=== PATIENT | female | born 1945 | race Caucasian/White ===

== ENCOUNTER 2020-07-03 10:11 | Observation (INO) ==
--- NOTE | 2020-06-07 11:43 | PAT Medication Instructions ---
Medication Instructions Date of Service June 07, 2020 Home Medications aspirin 81 mg PO QAM atorvastatin 10 mg PO HS calcium carbonate-vitamin D3 [Calcium 600 + D(3)] 2 cap PO QPM cholecalciferol (vitamin D3) [Vitamin D3] 25 mcg PO QAM coenzyme Q10 [Co Q-10] 100 mg PO QPM levothyroxine 88 mcg PO USEASDIRECTD lisinopril 30 mg PO QAM lysine [L-Lysine] 500 mg PO QAM multivitamin 1 cap PO DAILY phenazopyridine [Azo] 95 mg PO QAM STOP taking 2 weeks before surgery If surgery is within 2 weeks, stop taking as soon as possible. coenzyme Q10 [Co Q-10] 100 mg PO QPM lysine [L-Lysine] 500 mg PO QAM DO NOT take the morning of surgery cholecalciferol (vitamin D3) [Vitamin D3] 25 mcg PO QAM lisinopril 30 mg PO QAM multivitamin 1 cap PO DAILY phenazopyridine [Azo] 95 mg PO QAM Take morning of surgery With a small sip of water, OTHERWISE NOTHING TO EAT OR DRINK AFTER MIDNIGHT: aspirin 81 mg PO QAM levothyroxine 88 mcg PO USEASDIRECTD Take evening before surgery atorvastatin 10 mg PO HS calcium carbonate-vitamin D3 [Calcium 600 + D(3)] 2 cap PO QPM Other Notes If you have any questions please call us at [phone] or [phone] or [phone] or [phone]
--- NOTE | 2020-06-17 11:45 | Anesthesiology Consultation ---
Date of Service June 17, 2020 Assessment & Plan (1) Encounter for pre-operative examination: COVID Status: As of 06/17 assessment, patient denies travel to endemic area, known exposure/sick contacts, or symptoms of COVID19. Patient instructed that they and their household members must follow strict social distancing guidelines, wear a mask in public and avoid travel/events/gatherings for 14 days prior to surgery. Preoperative COVID19 testing to be completed prior to surgery per surgeon's arrangements. Patient made aware to self-isolate as much as possible between COVID testing and surgery. Patient will be getting her second vaccine the day after her Covid test (06/27/2020). Patient advised to be isolated after Covid test other than this. Patient also made aware of potential side effects from second dose and possibility of mild flu-like illness day after vaccine. Advised if any symptoms persist beyond 24 to 48 hours after Covid vaccine, to follow-up with surgeon and PCP. H/O PONV. Chart Review Chart Review: Acceptable Risk for Surgery (pending surgeon-ordered pcp clearance) and Patient seen in Pre Admission Testing Teaching & Discussion Instructed NPO after midnight before surgery, except medications with 15 cc of water. Medication instructions provided according to the PAT guidelines. History Surgery Operation Date: 07/03/20 08:35 Proposed Procedures p Left Total Knee Arthroplasty - Jair Demarco DO Height/Weight Height: 5 ft 8 in Weight: 79.9 kg Allergies Allergy/AdvReac Type Severity Reaction Status Date / Time No Known Allergies Allergy Verified 06/04/20 09:00 Medications Home Medications Medication Instructions Recorded Confirmed Last Taken aspirin 81 mg PO QAM 06/04/20 06/04/20 Unknown atorvastatin 10 mg PO HS 06/04/20 06/04/20 Unknown calcium carbonate-vitamin D3 2 cap PO QPM 06/04/20 06/04/20 Unknown [Calcium 600 + D(3)] cholecalciferol (vitamin D3) 25 mcg PO QAM 06/04/20 06/04/20 Unknown [Vitamin D3] coenzyme Q10 [Co Q-10] 100 mg PO QPM 06/04/20 06/04/20 Unknown levothyroxine 88 mcg PO USEASDIRECTD 06/04/20 06/04/20 Unknown lisinopril 30 mg PO QAM 06/04/20 06/04/20 Unknown lysine [L-Lysine] 500 mg PO QAM 06/04/20 06/04/20 Unknown multivitamin 1 cap PO DAILY 06/04/20 06/04/20 Unknown phenazopyridine [Azo] 95 mg PO QAM 06/04/20 06/04/20 Unknown Past Medical History Medical History (Updated 06/17/20 @ 15:47 by Ross Samuel) History of COVID-19 04/08/2020 - positive covid tested at [facility], loss of tast and smell. no current problems Hyperlipidemia Hypertension Hypothyroidism Osteoarthritis PONV (postoperative nausea and vomiting) Exercise / Class Metabolic Activity II 4-5 Yardwork/Stairs/Walk up hill Past Surgical History Surgical History History of arthroscopy of right knee Hx of cataract surgery right and left Hx of colonoscopy Hx of tonsillectomy Past Anesthesia History No Hx of Anesthesia Complications and No Family Hx of Anesthesia Complications History of PONV No Hx of Motion Sickness and History of PONV (nausea only with one procedure) Social History Smoking Status: Never smoker Do You Dip or Chew Tobacco: No Hx Alcohol Use: No Hx Substance Use: No substance use type: does not use Review of Systems Pt denies any recent chest pain, shortness of breath, palpitations, fever, URI, or uncontrolled acid reflux. +chronic cough for many years Physical Exam Vital Signs BP: 170/74 -- pt is anxious, takes BP at home and it's 115 systolic P: 62bpm SPO2: 98% RA T: 98.0 F R: 16 ENMT Mouth: + dental bridge (upper L side) and + dental restorations; no chipped teeth and no loose teeth Thyromental Distance: > or= 3.5 Finger Breadths Mallampati Class: II Neck neck extension not limited Respiratory normal respiratory effort, lungs clear to auscultation Cardiovascular RRR, no murmur, no edema Testing Laboratory Results 06/17/20 11:56 06/17/20 11:56 PT 10.7 Seconds (9.0-12.0) 06/17/20 11:56 INR 1.1 (0.9-1.1) 06/17/20 11:56 APTT 24.6 Seconds (21.0-31.0) 06/17/20 11:56 Hemoglobin A1c 5.9 % (4.5-5.6) H 06/17/20 11:56 Urine Color Yellow 06/17/20 11:56 Urine Appearance Clear (Clear) 06/17/20 11:56 Urine pH 5.0 (4.5-7.5) 06/17/20 11:56 Ur Specific [place] 1.016 (1.000-1.030) 06/17/20 11:56 Urine Protein Negative (Negative) 06/17/20 11:56 Urine Glucose (UA) Negative (Negative) 06/17/20 11:56 Urine Ketones Negative (Negative) 06/17/20 11:56 Urine Nitrite Negative (Negative) 06/17/20 11:56 Ur Leukocyte Esterase 1+ (Negative) H 06/17/20 11:56 Urine WBC (Auto) 10-30 /hpf (0-5) H 06/17/20 11:56 Urine RBC (Auto) 0-4 /hpf (0-4) 06/17/20 11:56 U Hyaline Cast (Auto) 0 /lpf (0-5) 06/17/20 11:56 U Epithel Cells (Auto) 5-10 /lpf (0-5) H 06/17/20 11:56 Urine Bacteria (Auto) Negative (Negative) 06/17/20 11:56 Blood Type O Positive 06/17/20 11:56 Antibody Screen NEGATIVE 06/17/20 11:56 Electrocardiogram Date: 06/17/20 Findings: + NSR @ (63bpm) Chest X-Ray Date: 06/17/20 Findings: + NAD
--- NOTE | 2020-06-17 12:41 | XRay Report ---
XR chest Pre-admission PA/Lat CLINICAL HISTORY: Preoperative evaluation. COMPARISON STUDY: No previous studies for comparison. FINDINGS: Lung volumes are normal. Lungs are clear. There is no pneumothorax or pleural effusion. Car diac size is normal. Mediastinal contours are normal. There is no evidence for pulmonary edema. IMPRESSION: No acute cardiopulmonary findings. ACT 112: Negative or not required by law. Electronically signed by: Cuong Allison M.D. 06/17/2020 12:40 PM
[2020-06-17 13:22] LABS: Basophils # (auto) 0.02 K/uL (0-0.2); Basophils % (auto) 0.3 %; Eosinophils # (auto) 0.19 K/uL (0-0.5); Eosinophils % (auto) 2.8 %; Hematocrit (blood only) 40.8 % (37-47); Hemoglobin 13.7 g/dL (12.0-16.0); Immature Granulocytes # (auto) 0.02 K/uL (0.00-0.02); Immature Granulocytes % (auto) 0.3 %; Lymphocytes # (auto) 2.44 K/uL (1.2-3.4); Lymphocytes % (auto) 36.3 %; Mean Corpuscular Hemoglobin 30.3 pg (25-34); Mean Corpuscular Hgb Conc 33.6 g/dL (32-36); Mean Corpuscular Volume 90.3 fL (80-100); Mean Platelet Volume 11.3 fL (7.4-10.4); Monocytes # (auto) 0.45 K/uL (0.11-0.59); Monocytes % (auto) 6.7 %; Neutrophils # (auto) 3.61 K/uL (1.4-6.5); Neutrophils % (auto) 53.6 %; Platelet Count 165 K/uL (130-400); RDW Coefficient of Variation 13.5 % (11.5-14.5); RDW Standard Deviation 44.3 fL (36.4-46.3); Red Blood Count 4.52 M/uL (4.2-5.4); White Blood Count 6.73 K/uL (4.8-10.8)
[2020-06-17 13:28] LABS: Appearance Urine Clear (Clear); Bacteria Urine Automated Negative (Negative); Bilirubin Urine Negative (Negative); Blood Urine Negative (Negative); Cast Urine Automated 0 /lpf (0-5); Color Urine Yellow; Glucose Urine UA Negative (Negative); Ketones Urine Negative (Negative); Leukocyte Esterase Urine 1+ (Negative); Nitrite Urine Negative (Negative); Protein Urine Negative (Negative); RBC Urine Automated 0-4 /hpf (0-4); Specific Gravity Urine 1.016 (1.000-1.030); Urobilinogen Urine Negative (Negative)
[2020-06-17 13:29] LABS: BUN Creatinine Ratio 17.8 (10-20); Calcium 10.6 mg/dl (8.5-10.1); Creatinine Clr Calc Pharmacy 64.4 ml/min; Est GFR (African American) 78.2; Est GFR (Non-African American) 67.5; Potassium 4.3 mmol/L (3.5-5.1)
[2020-06-17 13:31] LABS: Estimated Average Glucose 123 mg/dl; Hemoglobin A1C 5.9 % (4.5-5.6)
[2020-06-17 13:39] LABS: INR 1.1 (0.9-1.1); Partial Thromboplastin Ratio 0.9; Partial Thromboplastin Time 24.6 Seconds (21.0-31.0); Prothrombin Time 10.7 Seconds (9.0-12.0)
--- NOTE | 2020-06-17 14:26 | Electrocardiogram Report ---
Test Reason : Blood Pressure : / mmHG Vent. Rate : 063 BPM Atrial Rate : 063 BPM P-R Int : 144 ms QRS Dur : 088 ms QT Int : 424 ms P-R-T Axes : 054 -18 052 degrees QTc Int : 433 ms Normal sinus rhythm Normal ECG No previous ECGs available Confirmed by Rolan Smith ([id number]) on 06/17/2020 2:25:54 PM Referred By: Jair Demarco Confirmed By:Rolan Smith
--- NOTE | 2020-06-28 08:55 | History & Physical Report ---
Date of Service June 28, 2020 date of surgery: 07/03/20 Procedure: Left Total Knee Arthroplasty Assessment & Plan (1) Arthritis of knee, left: she presents with continued pain in her left knee, it is now buckling and giving out, she has had prior visco injections without much relief. we discussed her options and she would like to proceed with left total knee arthroplasty at [facility]. will use hinged knee brace to replace the other knee brace that she has been using. will proceed with left TKA. The risks and benefits have been discussed including, but not limited to, risk of infection, nerve injury, stiffness, loss of motion, failure to improve, etc. Reasonable outcomes and options of treatment were discussed. An explanation of appropriate alternatives to the procedure that may be advantageous were discussed and their risks and benefits, as well as the risks and benefits of not proceeding with treatment. I offered to answer any additional inquiries concerning the treatment involved. All the patient's questions were answered. The patient is agreeable, understanding of the treatment plan and alternatives, and wishes to proceed with the treatment plan. History of Present Illness Chief Complaint: left knee pain Primary Care Provider: Kim Solo DO Federico is a 75 year old female who complains of left knee pain, presents for pre- op evaluation prior to a left total knee replacement by dr Demarco at [facility]. she complains of pain, crepitus, decreased range of motion and stiffness in her left knee. she states that the symptoms have been chronic and non-traumatic. Currently the patient states that the symptoms are moderate-severe. The pain is described as aching, sharp and throbbing. The symptoms are aggravated by ascending stairs, daily activities, first steps while awake walking. Prior NSAIDs include IBU and Aleve. she has been treated with previous visco injections in the past without much relief. she is also using a hinged knee brace for support. Allergies Allergy/AdvReac Type Severity Reaction Status Date / Time No Known Allergies Allergy Verified 06/04/20 09:00 Home Medications Medication Instructions Recorded Confirmed Type aspirin 81 mg PO QAM 06/04/20 06/04/20 History atorvastatin 10 mg PO HS 06/04/20 06/04/20 History calcium carbonate-vitamin D3 2 cap PO QPM 06/04/20 06/04/20 History [Calcium 600 + D(3)] cholecalciferol (vitamin D3) 25 mcg PO QAM 06/04/20 06/04/20 History [Vitamin D3] coenzyme Q10 [Co Q-10] 100 mg PO QPM 06/04/20 06/04/20 History levothyroxine 88 mcg PO USEASDIRECTD 06/04/20 06/04/20 History lisinopril 30 mg PO QAM 06/04/20 06/04/20 History lysine [L-Lysine] 500 mg PO QAM 06/04/20 06/04/20 History multivitamin 1 cap PO DAILY 06/04/20 06/04/20 History phenazopyridine [Azo] 95 mg PO QAM 06/04/20 06/04/20 History Past Med/Surg History Medical History History of COVID-19 04/08/2020 - positive covid tested at [facility], loss of tast and smell. no current problems Hyperlipidemia Hypertension Hypothyroidism Osteoarthritis PONV (postoperative nausea and vomiting) Surgical History History of arthroscopy of right knee Hx of cataract surgery right and left Hx of colonoscopy Hx of tonsillectomy Social History Smoking Status: Never smoker Second Hand Exposure: No; Do You Dip or Chew Tobacco: No; Tobacco Cessation Education Requested by Patient: No Hx Alcohol Use: No Hx Substance Use: No Preferred Language: Italian Communication Ability: Effective Maintenance And Utilities Supervisor Required: No Beliefs That Will Affect Care: None Current Living Situation: Spouse Other Information That Helps Us Care for You: No Feels Safe at Home: Yes Safety Concerns: Feels Safe At This Time Assistive Devices: Brace/Splint/Immobilizer and Glasses Review of Systems Review of Systems: All systems reviewed & are unremarkable except as noted in HPI & below Constitutional: no fever, no chills and no sweats Respiratory: no cough and no dyspnea Cardiovascular: no chest pain, no dyspnea and no orthopnea Gastrointestinal: no abdominal pain, no nausea and no vomiting Musculoskeletal: as per Subjective / HPI Physical Exam Physical Exam: HT: 5ft 8in WT: 79.9kg BP: 128/84 Constitutional: WD/WN, vitals as above no acute distress Respiratory: normal respiratory effort, lungs clear to auscultation no respiratory distress, no labored breathing and does not use accessory muscles Cardiovascular: RRR, no murmur, no edema Gastrointestinal (Abdomen): normal bowel sounds, soft, nontender, no hepatosplenomegaly Musculoskeletal: Knee: + knee abnormal to inspection (left knee- ), + effusion (+1 effusion), + limited ROM of knee (ROM 0/3/110), + knee ROM with crepitation, + joint line tenderness (medial joint line) and + Ricci's sign positive; no deformity, no skin erythema, no ecchymosis, no valgus laxity, no varus laxity, anterior drawer test negative, Lorenza's sign negative and pivot shift test negative Results & Data Results & Data ([facility]) Laboratory Results Laboratory Results WBC 6.73 K/uL (4.8-10.8) 06/17/20 11:56 RBC 4.52 M/uL (4.2-5.4) 06/17/20 11:56 Hgb 13.7 g/dL (12.0-16.0) 06/17/20 11:56 Hct 40.8 % (37-47) 06/17/20 11:56 MCV 90.3 fL (80-100) 06/17/20 11:56 MCH 30.3 pg (25-34) 06/17/20 11:56 MCHC 33.6 g/dL (32-36) 06/17/20 11:56 RDW Std Deviation 44.3 fL (36.4-46.3) 06/17/20 11:56 RDW Coeff of Shailesh 13.5 % (11.5-14.5) 06/17/20 11:56 Plt Count 165 K/uL (130-400) 06/17/20 11:56 MPV 11.3 fL (7.4-10.4) H 06/17/20 11:56 Immature Gran % (Auto) 0.3 % 06/17/20 11:56 Neut % (Auto) 53.6 % 06/17/20 11:56 Lymph % (Auto) 36.3 % 06/17/20 11:56 [place] % (Auto) 6.7 % 06/17/20 11:56 Eos % (Auto) 2.8 % 06/17/20 11:56 Baso % (Auto) 0.3 % 06/17/20 11:56 Neut # (Auto) 3.61 K/uL (1.4-6.5) 06/17/20 11:56 Lymph # (Auto) 2.44 K/uL (1.2-3.4) 06/17/20 11:56 [place] # (Auto) 0.45 K/uL (0.11-0.59) 06/17/20 11:56 Eos # (Auto) 0.19 K/uL (0-0.5) 06/17/20 11:56 Baso # (Auto) 0.02 K/uL (0-0.2) 06/17/20 11:56 Immature Gran # (Auto) 0.02 K/uL (0.00-0.02) 06/17/20 11:56 PT 10.7 Seconds (9.0-12.0) 06/17/20 11:56 INR 1.1 (0.9-1.1) 06/17/20 11:56 APTT 24.6 Seconds (21.0-31.0) 06/17/20 11:56 PTT Ratio 0.9 06/17/20 11:56 Sodium 145 mmol/L (136-145) 06/17/20 11:56 Potassium 4.3 mmol/L (3.5-5.1) 06/17/20 11:56 Chloride 108 mmol/L (98-107) H 06/17/20 11:56 Carbon Dioxide 27 mmol/L (21-32) 06/17/20 11:56 Anion Gap 10.0 (3-11) 06/17/20 11:56 BUN 15 mg/dl (7-18) 06/17/20 11:56 Creatinine 0.85 mg/dl (0.6-1.2) 06/17/20 11:56 Est Cr Clr Drug Dosing 64.4 ml/min 06/17/20 11:56 Est GFR ( Amer) 78.2 06/17/20 11:56 Est GFR (Non-Af Amer) 67.5 06/17/20 11:56 BUN/Creatinine Ratio 17.8 (10-20) 06/17/20 11:56 Glucose 87 mg/dl (70-99) 06/17/20 11:56 Estimat Average Glucose 123 mg/dl 06/17/20 11:56 Hemoglobin A1c 5.9 % (4.5-5.6) H 06/17/20 11:56 Calcium 10.6 mg/dl (8.5-10.1) H 06/17/20 11:56 Albumin 4.0 gm/dl (3.4-5.0) 06/17/20 11:56 Urine Color Yellow 06/17/20 11:56 Urine Appearance Clear (Clear) 06/17/20 11:56 Urine pH 5.0 (4.5-7.5) 06/17/20 11:56 Ur Specific [place] 1.016 (1.000-1.030) 06/17/20 11:56 Urine Protein Negative (Negative) 06/17/20 11:56 Urine Glucose (UA) Negative (Negative) 06/17/20 11:56 Urine Ketones Negative (Negative) 06/17/20 11:56 Urine Blood Negative (Negative) 06/17/20 11:56 Urine Nitrite Negative (Negative) 06/17/20 11:56 Urine Bilirubin Negative (Negative) 06/17/20 11:56 Urine Urobilinogen Negative (Negative) 06/17/20 11:56 Ur Leukocyte Esterase 1+ (Negative) H 06/17/20 11:56 Urine WBC (Auto) 10-30 /hpf (0-5) H 06/17/20 11:56 Urine RBC (Auto) 0-4 /hpf (0-4) 06/17/20 11:56 U Hyaline Cast (Auto) 0 /lpf (0-5) 06/17/20 11:56 U Epithel Cells (Auto) 5-10 /lpf (0-5) H 06/17/20 11:56 Urine Bacteria (Auto) Negative (Negative) 06/17/20 11:56 Blood Type O Positive 06/17/20 11:56 Antibody Screen NEGATIVE 06/17/20 11:56 Diagnostic Findings Left Knee X-ray: left knee series confirm advanced degenerative changes to the left knee, greatest medial compartments and patellofemoral joint, showing joint space narrowing, osteophyte formation and subchondral sclerosis. no acute bony pathology noted.
[~2020-07-03 10:11] MED LIST: ACETAMINOPHEN 500 MG TAB PO SCH; BUPIVACAINE 0.25% 30 ML VIAL ONE; BUPIVACAINE 0.5 % 5 MG/1 ML PF 10ML VIAL ONE; CeleBREX 200 MG CAP PO SCH; EPINEPHrine INJ 1 MG/ML AMP ONE; FAMOTIDINE 20 MG TAB PO SCH; GABAPENTIN 300 MG CAP PO SCH; LR 500ML BOLUS, THEN 15ML/HR IV SCH; METOCLOPRAMIDE HCL 10 MG TABLET PO SCH; ROPIVACAINE 0.5% HCL/PF 150 MG, BUPIVACAINE 0.75% MPF 20 ML, EPINEPHrine 30MG/30ML (OR ... INSTIL SCH; Scopolamine 1 MG TDSY TD SCH; ceFAZolin 1000MG 1,000 MG/7.5 ML SYR IV SCH; dexAMETHasone 4 MG TAB PO SCH
[2020-07-03] MEDS ORDERED: MIDAZOLAM HCL 1 MG/ML 2ML VIAL ONE ×3 (11:20→13:57)
--- NOTE | 2020-07-03 11:42 | History & Physical Bridge Note ---
Date of Service July 03, 2020 History & Physical Bridge Note I have examined the patient, reviewed the History & Physical and in the interval since the performance of the History & Physical I have noted the following changes of clinical significance: no changes noted
[2020-07-03] MEDS ORDERED: TRANEXAMIC ACID / 0.7% NACL 1000MG/100ML BAG IV ONE (11:46)
[2020-07-03] MEDS ORDERED: TRANEXAMIC ACID 1,000 MG **IV Pre-op IV SCH (12:00)
[2020-07-03] MEDS ORDERED: TRANEXAMIC ACID / 0.7% NACL 1,000 MG/100 ML BAG IV SCH (12:00)
[2020-07-03] MEDS ORDERED: BACITRACIN INJ 50,000 UNIT VIAL ONE (12:23)
[2020-07-03] MEDS ORDERED: ORTHO JOINT ANESTHETIC ONE (12:23)
[2020-07-03] MEDS ORDERED: HYDROmorphone INJ 2 MG/ML SYR/VIAL IV PRN (12:30)
[2020-07-03] MEDS ORDERED: ePHEDrine sulfate 50 MG/ML AMP IV PRN (12:30)
[2020-07-03] MEDS ORDERED: ONDANSETRON INJ 2 MG/ML 2 ML VIAL IV PRN ×2 (12:30→16:59)
[2020-07-03] MEDS ORDERED: ATROPINE SULFATE 0.1 MG/ML 10ML SYR IV PRN (12:30)
[2020-07-03] MEDS ORDERED: fentaNYL citrate 100 MCG/2 ML VIAL IV PRN (12:30)
[2020-07-03] MEDS ORDERED: LIDOCAINE HCL 2% 2 ML VIAL/AMP(20MG/ML) INFIL ONE (13:43)
[2020-07-03] MEDS ORDERED: PROPOFOL IV EMULSION 10 MG/ML 20 ML VIAL IV ONE (13:43)
--- NOTE | 2020-07-03 14:14 | Operative Report ---
Post Operative Report Pre & Post Diagnosis Operation Date: 07/03/20 12:55 Pre-Op Diagnosis: Left Knee Primary Osteoarthritis Post-Op Diagnosis: Left Knee Primary Osteoarthritis I identified the patient and participated in the time-out.: Yes Procedure Operation Date: 07/03/20 12:55 Actual Procedures p Left Total Knee Arthroplasty(Left) utilizing [employer] persona medial constrained size 7 femur E tibia 10 polythirty 1 oval patella- Jair Demarco DO Surgeon Jair Demarco DO Spot Checker Uriel ERNANDEZ Estimated Blood Loss 5 Findings Consistent with Post-Op Diagnosis Patient presents with severe end-stage DJD left knee no response to conservative management varus alignment subchondral sclerosis marginal osteophytes subchondral cystic changes eburnated [id number] with a moderate to large e ffusion Specimens Bone and cartilage Drains Medium bore Hemovac Anesthesia Type MAC Spinal Regional Complications none Disposition Accompanied Patient To Recovery: No Disposition: Recovery Room Indications Patient presents with severe end-stage DJD left knee no response to conservative management clinic physical therapy anti-inflammatories relative rest activity modification corticosteroid injection Visco supplementation the above intraoperative findings are noted at time of surgery Description of Procedure After proper prepping and draping of the left lower extremity anterior midline incision was made over the region of the extensor extensor mechanism after meticulous hemostasis was obtained and maintained in subcutaneous tissues a medial parapatellar incision was made The patella was subluxed lateralward the medial lateral gutter were cleaned from any hypertrophic synovitis and scar tissue of the distal femoral block was placed and the distal femoral osteotomy cut was made subsequently the chamfers anterior and posterior osteotomy cuts were made utilizing the 4-in-1 block the tibia was subsequently subluxed anteriorward medial and ateral meniscal remnants were excised in their entirety remnants of the anterior and posterior cruciate ligaments were excised in their entirety excellent exposure of the proximal tibia was obtained the tibial osteotomy guide was placed on the proximal tibial osteotomy cut was made once again the knee was irrigated with copious amounts of sterile saline solution the patella was subsequently everted lateralward thickened scar tissue around the patella was removed the patella was subsequently cut utilizing a freehand technique and was drilled prepared for final preparation and placement of patella socially flexion-extension gaps were checked and the equal and symmetric trials were placed to the appropriate femoral and tibial trials with poly-spacer being placed for equal flexion and extension gaps and full range of motion including extension to 0 and flexion to 140 the trial components after having been taken to recovery range of motion was subsequently removed meticulous hemostasis was obtained and maintained subsequently a knee block injection of joint cocktail including ropivacaine 0.5% 150 mg. Bupivacaine 0.5% epinephrine 1-200,030 mL's toradol 30 mg dexamethasone 4 mg ketamine 10 mg clonidine 100 micrograms normal saline solution 30 mg was infiltrated into the soft tissues of the posterior knee medial lateral gutters and periosteal synovium special attention was paid to protect neurovascular structures at all times subsequently trial components having been removed the knee was irrigated with sterile saline solution. debris was removed the proximal tibia was subsequently prepared and was made ready for the placement of the tibial component tibial component was also cemented and tamped into position the femoral component was subsequently placed and cemented in the position the patellar component was subsequently cemented in position because hemostasis once again obtained and maintained wound having been thoroughly irrigated with debridement and debridement lavage was performed as well as a medial parapatellar incision closed with #1 Vicryl in interrupted fashion subcutaneous was closed with #2 Vicryl skin was closed with skin clips. PA-C was necessary for prepping and drapping as well as wound closure of deep fascia Sub cutaneous tissue and skin and was necessary for the case. A sterile compressive dressing was placed patient was taken to recovery in stable condition of report dictated by Dav I attest to the content of the Intraoperative Record and any orders documented therein. Any exceptions are noted below. I attest to the content of the Intraoperative Record and any orders documented therein. Any exceptions are noted below.
--- NOTE | 2020-07-03 15:41 | XRay Report ---
XR knee LT 1 or 2V routine CLINICAL HISTORY: Postoperative evaluation. COMPARISON: None FINDINGS: Alignment of the total left knee arthroplasty is anatomic. There is no periprosthetic frac ture or unexpected radiopaque foreign body. There are skin margaret. IMPRESSION: Expected findings following total left knee arthroplasty. ACT 112: Negative or not required by law. Electronically signed by: Cuong Allison M.D. 07/03/2020 3:40 PM
--- NOTE | 2020-07-03 15:48 | Anesthesiology Progress Note ---
Date of Service July 03, 2020 Anesthesia Post Procedure Vital Signs Vital Signs: Temp Pulse Pulse Resp BP BP Pulse Ox 07/03/20 15:30 60 16 130/61 95 07/03/20 15:20 61 16 132/67 100 07/03/20 15:10 63 14 126/65 99 07/03/20 15:00 69 14 123/72 100 07/03/20 14:52 36.5 C 78 19 137/68 100 07/03/20 10:58 36.9 C 73 20 174/85 H 100 Transfer of Care Handoff Completed per policy Notes Mental Status: alert / awake / arousable and participated in evaluation Patient Amnestic to Procedure: Yes Nausea / Vomiting: adequately controlled Pain: adequately controlled Airway Patency, RR, SpO2: stable & adequate BP & HR: stable & adequate Hydration State: stable & adequate Neuraxial Anesthesia: was administered and sensory block is resolving Anesthetic Complications: no major complications apparent and Pt Satisfied with anesthetic care
[2020-07-03] MEDS ORDERED: Scopolamine CHECK PATCH PLACEMENT SCH (16:00)
[2020-07-03] MEDS ORDERED: NALOXONE HCL 0.4 MG/1 ML VIAL/CARP IV PRN (16:59)
[2020-07-03] MEDS ORDERED: METOCLOPRAMIDE HCL INJ 5 MG/ML 2 ML VIAL IV PRN (16:59)
[2020-07-03] MEDS ORDERED: oxyCODONE HCL IR 5 MG TAB (IMMEDIATE RELEASE) PO PRN (16:59)
[2020-07-03] MEDS ORDERED: diphenhydrAMINE Capsule 25 MG CAP PO PRN (16:59)
[2020-07-03] MEDS ORDERED: bisacodyL 10 MG SUPP PR PRN (16:59)
[2020-07-03] MEDS ORDERED: MAGNESIUM HYDROXIDE SUSP 30 ML UDC PO PRN (16:59)
[2020-07-03] MEDS ORDERED: HYDROmorphone INJ 1 MG/ML SYRINGE IV PRN (16:59)
[2020-07-03] MEDS: SODIUM CHLORIDE 0.9% 1000ML 1,000 ML IV SCH (17:46)
[2020-07-03] MEDS: KETOROLAC TROMETHAMINE 15 MG/ML VIAL IV SCH ×2 (17:48→23:12)
[2020-07-03] MEDS ORDERED: ATORVASTATIN 10 MG TAB PO SCH (21:00)
[2020-07-03] MEDS ORDERED: SENNA 8.6 MG TAB PO SCH (21:00)
[2020-07-03] MEDS ORDERED: CALCIUM 600MG + VIT D 400 IU TAB PO SCH (21:00)
[2020-07-03] MEDS: DOCUSATE SODIUM 100 MG CAP PO SCH (21:38)
[2020-07-03] MEDS: ASPIRIN 81 MG ECTAB PO SCH (21:38)
[2020-07-03] MEDS: ACETAMINOPHEN 500 MG TAB PO SCH (21:38)
[2020-07-03] MEDS: ceFAZolin 1000MG 1,000 MG/7.5 ML SYR IV SCH (21:38)
[2020-07-04] MEDS: ACETAMINOPHEN 500 MG TAB PO SCH (05:01)
[2020-07-04] MEDS: SODIUM CHLORIDE 0.9% 1000ML 1,000 ML IV SCH (05:02)
[2020-07-04] MEDS: KETOROLAC TROMETHAMINE 15 MG/ML VIAL IV SCH ×2 (05:02→11:52)
[2020-07-04] MEDS: ceFAZolin 1000MG 1,000 MG/7.5 ML SYR IV SCH (05:02)
[2020-07-04 06:10] LABS: Hematocrit (blood only) 31.6 % (37-47); Hemoglobin 10.7 g/dL (12.0-16.0); Mean Corpuscular Hgb Conc 33.9 g/dL (32-36); Mean Corpuscular Volume 88.5 fL (80-100); Mean Platelet Volume 11.2 fL (7.4-10.4); Platelet Count 156 K/uL (130-400); RDW Coefficient of Variation 13.2 % (11.5-14.5); RDW Standard Deviation 42.7 fL (36.4-46.3); Red Blood Count 3.57 M/uL (4.2-5.4); White Blood Count 11.62 K/uL (4.8-10.8)
[2020-07-04] MEDS ORDERED: LEVOTHYROXINE SODIUM 88 MCG TABLET PO SCH (06:30)
[2020-07-04 06:34] LABS: BUN Creatinine Ratio 21.1 (10-20); Calcium 9.4 mg/dl (8.5-10.1); Creatinine Clr Calc Pharmacy 58.6 ml/min; Est GFR (African American) 70.2; Est GFR (Non-African American) 60.5; Potassium 4.1 mmol/L (3.5-5.1)
--- NOTE | 2020-07-04 06:57 | Orthopedic Progress Note ---
Date of Service July 04, 2020 Assessment & Plan (1) History of total left knee replacement: POD #1 s/p left TKA pt/ot dvt proph with DOLLY/SCD/ASA plan for d/c home with HHPT, will recheck after PT today. Admission and Anticipated Discharge Date Admission Date: July 03, 2020 Subjective POD #1 s/p Left TKA Review of Systems Constitutional: no fever, no chills and no sweats Respiratory: no cough and no dyspnea Cardiovascular: no chest pain and no dyspnea Gastrointestinal: no abdominal pain, no nausea and no vomiting Physical Exam Physical Exam: Vital Signs Temp 36.7 C 07/04/20 03:21 Pulse 60 07/04/20 03:21 Resp 16 07/04/20 03:21 BP 114/65 07/04/20 03:21 Pulse Ox 95 07/04/20 03:21 Intake & Output 07/03/20 07/03/20 07/04/20 06:59 18:59 06:59 Intake Total 1600 / 3200 1600 / 3200 Output Total 15 / 1065 1050 / 1065 Balance 1585 / 2135 550 / 2135 Weight 78.925 kg Intake: IV 600 / 1700 1100 / 1700 Lr 1,000 ml @ 15 mls/hr IV . 500 / 500 Q24H BRENNAN Rx#:[id number] Nss 1000ML 1,0 00 ml @ 100 mls/ 1000 / 1000 hr IV .Q10H SC H Rx#:[id number] TRANEXAMIC ACI D / 0.7% NACL 1, 100 / 200 100 / 200 000 mg In 100 ml @ 600 mls/hr IV 1200 BRENNAN Rx #:[id number] IV Perioperative 1000 / 1000 Oral 500 / 500 Output: Urine 650 / 650 Estimated Blood Loss 5 / 5 Drain Output 10 / 410 400 / 410 Left Knee Hemo vac 10 / 410 400 / 410 Other: # Unmeasured Voi ds 1 Weight Measureme nt Method Standing Scale Constitutional: WD/WN, vitals as above Musculoskeletal: Left Leg: NVDI, calf SNT, negative bouchra sign. DP palpable, able to wiggle toes/ankle movement without difficulty. dressing clean dry and intact. Results & Data ([facility]) Vital Signs (Past 12 Hours) Vital Signs Temp Pulse Pulse Resp BP Pulse Ox 07/04/20 03:21 36.7 C 60 16 114/65 95 07/03/20 22:48 36.6 C 60 16 104/64 95 07/03/20 19:29 36.6 C 66 16 131/71 95 Laboratory Results Laboratory Results WBC 11.62 K/uL (4.8-10.8) H 07/04/20 05:34 RBC 3.57 M/uL (4.2-5.4) L 07/04/20 05:34 Hgb 10.7 g/dL (12.0-16.0) L 07/04/20 05:34 Hct 31.6 % (37-47) L 07/04/20 05:34 MCV 88.5 fL (80-100) 07/04/20 05:34 MCH 30.0 pg (25-34) 07/04/20 05:34 MCHC 33.9 g/dL (32-36) 07/04/20 05:34 RDW Std Deviation 42.7 fL (36.4-46.3) 07/04/20 05:34 RDW Coeff of Shailesh 13.2 % (11.5-14.5) 07/04/20 05:34 Plt Count 156 K/uL (130-400) 07/04/20 05:34 MPV 11.2 fL (7.4-10.4) H 07/04/20 05:34 Immature Gran % (Auto) 0.3 % 06/17/20 11:56 Neut % (Auto) 53.6 % 06/17/20 11:56 Lymph % (Auto) 36.3 % 06/17/20 11:56 [place] % (Auto) 6.7 % 06/17/20 11:56 Eos % (Auto) 2.8 % 06/17/20 11:56 Baso % (Auto) 0.3 % 06/17/20 11:56 Neut # (Auto) 3.61 K/uL (1.4-6.5) 06/17/20 11:56 Lymph # (Auto) 2.44 K/uL (1.2-3.4) 06/17/20 11:56 [place] # (Auto) 0.45 K/uL (0.11-0.59) 06/17/20 11:56 Eos # (Auto) 0.19 K/uL (0-0.5) 06/17/20 11:56 Baso # (Auto) 0.02 K/uL (0-0.2) 06/17/20 11:56 Immature Gran # (Auto) 0.02 K/uL (0.00-0.02) 06/17/20 11:56 PT 10.7 Seconds (9.0-12.0) 06/17/20 11:56 INR 1.1 (0.9-1.1) 06/17/20 11:56 APTT 24.6 Seconds (21.0-31.0) 06/17/20 11:56 PTT Ratio 0.9 06/17/20 11:56 Sodium 142 mmol/L (136-145) 07/04/20 05:34 Potassium 4.1 mmol/L (3.5-5.1) 07/04/20 05:34 Chloride 111 mmol/L (98-107) H 07/04/20 05:34 Carbon Dioxide 26 mmol/L (21-32) 07/04/20 05:34 Anion Gap 5.0 (3-11) 07/04/20 05:34 BUN 20 mg/dl (7-18) H 07/04/20 05:34 Creatinine 0.93 mg/dl (0.6-1.2) 07/04/20 05:34 Est Cr Clr Drug Dosing 58.6 ml/min 07/04/20 05:34 Est GFR ( Amer) 70.2 07/04/20 05:34 Est GFR (Non-Af Amer) 60.5 07/04/20 05:34 BUN/Creatinine Ratio 21.1 (10-20) H 07/04/20 05:34 Glucose 128 mg/dl (70-99) H 07/04/20 05:34 Estimat Average Glucose 123 mg/dl 06/17/20 11:56 Hemoglobin A1c 5.9 % (4.5-5.6) H 06/17/20 11:56 Calcium 9.4 mg/dl (8.5-10.1) 07/04/20 05:34 Albumin 4.0 gm/dl (3.4-5.0) 06/17/20 11:56 Urine Color Yellow 06/17/20 11:56 Urine Appearance Clear (Clear) 06/17/20 11:56 Urine pH 5.0 (4.5-7.5) 06/17/20 11:56 Ur Specific [place] 1.016 (1.000-1.030) 06/17/20 11:56 Urine Protein Negative (Negative) 06/17/20 11:56 Urine Glucose (UA) Negative (Negative) 06/17/20 11:56 Urine Ketones Negative (Negative) 06/17/20 11:56 Urine Blood Negative (Negative) 06/17/20 11:56 Urine Nitrite Negative (Negative) 06/17/20 11:56 Urine Bilirubin Negative (Negative) 06/17/20 11:56 Urine Urobilinogen Negative (Negative) 06/17/20 11:56 Ur Leukocyte Esterase 1+ (Negative) H 06/17/20 11:56 Urine WBC (Auto) 10-30 /hpf (0-5) H 06/17/20 11:56 Urine RBC (Auto) 0-4 /hpf (0-4) 06/17/20 11:56 U Hyaline Cast (Auto) 0 /lpf (0-5) 06/17/20 11:56 U Epithel Cells (Auto) 5-10 /lpf (0-5) H 06/17/20 11:56 Urine Bacteria (Auto) Negative (Negative) 06/17/20 11:56 Blood Type O Positive 06/17/20 11:56 Antibody Screen NEGATIVE 06/17/20 11:56 Diagnostic Findings XR knee LT 1 or 2V routine CLINICAL HISTORY: Postoperative evaluation. COMPARISON: None FINDINGS: Alignment of the total left knee arthroplasty is anatomic. There is no periprosthetic fracture or unexpected radiopaque foreign body. There are skin margaret. IMPRESSION: Expected findings following total left knee arthroplasty.
[2020-07-04] MEDS ORDERED: CHOLECALCIFEROL 1,000 UNITS 25 MCG TAB PO SCH (09:00)
[2020-07-04] MEDS ORDERED: lisinopril 10 MG TAB PO SCH (09:00)
[2020-07-04] MEDS ORDERED: MULTIVITAMIN TAB PO SCH (09:00)
[2020-07-04] MEDS: DOCUSATE SODIUM 100 MG CAP PO SCH (09:06)
[2020-07-04] MEDS: ASPIRIN 81 MG ECTAB PO SCH (09:06)
--- NOTE | 2020-07-04 12:42 | Discharge Summary ---
Date of Service date of discharge: July 04, 2020 date of admission: 07-03-20 Admission HPI Per Admitting Provider Federico is a 75 year old female who complains of left knee pain, presents for pre- op evaluation prior to a left total knee replacement by dr Demarco at [facility]. she complains of pain, crepitus, decreased range of motion and stiffness in her left knee. she states that the symptoms have been chronic and non-traumatic. Currently the patient states that the symptoms are moderate-severe. The pain is described as aching, sharp and throbbing. The symptoms are aggravated by ascending stairs, daily activities, first steps while awake walking. Prior NSAIDs include IBU and Aleve. she has been treated with previous visco injections in the past without much relief. she is also using a hinged knee brace for support. Principal Diagnosis left knee arthritis Discharge Exam Constitutional WD/WN, vitals as above no acute distress Musculoskeletal left knee: NVDI, calf SNT, negative bouchra sign. DP palpable, able to wiggle toes/ankle movement without difficulty. NATHANIEL dressing clean dry and intact. expected post-operative bruising noted. Discharge Data Allergies Allergy/AdvReac Type Severity Reaction Status Date / Time No Known Allergies Allergy Verified 07/03/20 10:17 Consultations 07/03/20 16:59 Consult Case Management - Discharge Planning Routine Procedures Performed Operation Date: 07/03/20 12:55 Actual Procedures p Left Total Knee Arthroplasty(Left) - Jair Demarco DO Ordered Studies 07/03/20 05:00 US - OR guided needle placemen Routine Hospital Course (1) History of total left knee replacement: POD #1 s/p left TKA pt/ot dvt proph with DOLLY/SCD/ASA plan for d/c home with HHPT, will recheck after PT today. Laboratory Results WBC 11.62 K/uL (4.8-10.8) H 07/04/20 05:34 RBC 3.57 M/uL (4.2-5.4) L 07/04/20 05:34 Hgb 10.7 g/dL (12.0-16.0) L 07/04/20 05:34 Hct 31.6 % (37-47) L 07/04/20 05:34 MCV 88.5 fL (80-100) 07/04/20 05:34 MCH 30.0 pg (25-34) 07/04/20 05:34 MCHC 33.9 g/dL (32-36) 07/04/20 05:34 RDW Std Deviation 42.7 fL (36.4-46.3) 07/04/20 05:34 RDW Coeff of Shailesh 13.2 % (11.5-14.5) 07/04/20 05:34 Plt Count 156 K/uL (130-400) 07/04/20 05:34 MPV 11.2 fL (7.4-10.4) H 07/04/20 05:34 Immature Gran % (Auto) 0.3 % 06/17/20 11:56 Neut % (Auto) 53.6 % 06/17/20 11:56 Lymph % (Auto) 36.3 % 06/17/20 11:56 [place] % (Auto) 6.7 % 06/17/20 11:56 Eos % (Auto) 2.8 % 06/17/20 11:56 Baso % (Auto) 0.3 % 06/17/20 11:56 Neut # (Auto) 3.61 K/uL (1.4-6.5) 06/17/20 11:56 Lymph # (Auto) 2.44 K/uL (1.2-3.4) 06/17/20 11:56 [place] # (Auto) 0.45 K/uL (0.11-0.59) 06/17/20 11:56 Eos # (Auto) 0.19 K/uL (0-0.5) 06/17/20 11:56 Baso # (Auto) 0.02 K/uL (0-0.2) 06/17/20 11:56 Immature Gran # (Auto) 0.02 K/uL (0.00-0.02) 06/17/20 11:56 PT 10.7 Seconds (9.0-12.0) 06/17/20 11:56 INR 1.1 (0.9-1.1) 06/17/20 11:56 APTT 24.6 Seconds (21.0-31.0) 06/17/20 11:56 PTT Ratio 0.9 06/17/20 11:56 Sodium 142 mmol/L (136-145) 07/04/20 05:34 Potassium 4.1 mmol/L (3.5-5.1) 07/04/20 05:34 Chloride 111 mmol/L (98-107) H 07/04/20 05:34 Carbon Dioxide 26 mmol/L (21-32) 07/04/20 05:34 Anion Gap 5.0 (3-11) 07/04/20 05:34 BUN 20 mg/dl (7-18) H 07/04/20 05:34 Creatinine 0.93 mg/dl (0.6-1.2) 07/04/20 05:34 Est Cr Clr Drug Dosing 58.6 ml/min 07/04/20 05:34 Est GFR ( Amer) 70.2 07/04/20 05:34 Est GFR (Non-Af Amer) 60.5 07/04/20 05:34 BUN/Creatinine Ratio 21.1 (10-20) H 07/04/20 05:34 Glucose 128 mg/dl (70-99) H 07/04/20 05:34 Estimat Average Glucose 123 mg/dl 06/17/20 11:56 Hemoglobin A1c 5.9 % (4.5-5.6) H 06/17/20 11:56 Calcium 9.4 mg/dl (8.5-10.1) 07/04/20 05:34 Albumin 4.0 gm/dl (3.4-5.0) 06/17/20 11:56 Urine Color Yellow 06/17/20 11:56 Urine Appearance Clear (Clear) 06/17/20 11:56 Urine pH 5.0 (4.5-7.5) 06/17/20 11:56 Ur Specific [place] 1.016 (1.000-1.030) 06/17/20 11:56 Urine Protein Negative (Negative) 06/17/20 11:56 Urine Glucose (UA) Negative (Negative) 06/17/20 11:56 Urine Ketones Negative (Negative) 06/17/20 11:56 Urine Blood Negative (Negative) 06/17/20 11:56 Urine Nitrite Negative (Negative) 06/17/20 11:56 Urine Bilirubin Negative (Negative) 06/17/20 11:56 Urine Urobilinogen Negative (Negative) 06/17/20 11:56 Ur Leukocyte Esterase 1+ (Negative) H 06/17/20 11:56 Urine WBC (Auto) 10-30 /hpf (0-5) H 06/17/20 11:56 Urine RBC (Auto) 0-4 /hpf (0-4) 06/17/20 11:56 U Hyaline Cast (Auto) 0 /lpf (0-5) 06/17/20 11:56 U Epithel Cells (Auto) 5-10 /lpf (0-5) H 06/17/20 11:56 Urine Bacteria (Auto) Negative (Negative) 06/17/20 11:56 Blood Type O Positive 06/17/20 11:56 Antibody Screen NEGATIVE 06/17/20 11:56 Vital Signs Temp 36.8 C 07/04/20 11:08 Pulse 56 L 07/04/20 11:08 Resp 16 07/04/20 11:08 BP 128/64 07/04/20 11:08 Pulse Ox 91 07/04/20 11:08 Intake & Output 07/03/20 07/04/20 07/04/20 18:59 06:59 18:59 Intake Total 1600 / 3200 1600 / 3200 Output Total 15 / 1065 1050 / 1065 400 / 400 Balance 1585 / 2135 550 / 2135 -400 / -400 Weight 78.925 kg Intake: IV 600 / 1700 1100 / 1700 Lr 1,000 ml @ 15 mls/hr IV . 500 / 500 Q24H BRENNAN Rx#:[id number] Nss 1000ML 1,000 ml @ 100 mls/ 1000 / 1000 hr IV .Q10H BRENNAN Rx#:[id number] TRANEXAMIC ACID / 0.7% NACL 1, 100 / 200 100 / 200 000 mg In 100 ml @ 600 mls/hr IV 1200 BRENNAN Rx#:[id number] IV Perioperative 1000 / 1000 Oral 500 / 500 Output: Urine 650 / 650 300 / 300 Estimated Blood Loss 5 / 5 Drain Output 10 / 410 400 / 410 100 / 100 Left Knee Hemovac 10 / 410 400 / 410 100 / 100 Other: # Unmeasured Voids 1 Weight Measurement Method Standing Scale Total Time Total Time Spent Total Time Spent (In Minutes): 20 Total Time Includes: Examination of the Patient, Discharge Planning and Medication Reconciliation Discharge Plan Discharge Items Patient Disposition: Home - Home Health Services Reason For Visit: Left Knee Primary Osteoarthritis Discharge Diagnosis: left total knee replacement Condition on Discharge: Good Activity: Per Instructions section Weightbearing Comment: WBAT with walker Non-emergency contact: Surgeon Call non-emergency contact if: you have any medication questions, your pain is worsening, your temperature is above 101, your wound has increased redness, your wound has increased drainage and your wound pain has increased Follow-up/Referrals: Kim Solo DO [Primary Care Provider] - Diet: Regular Addtl Attending Provider Instructions: ACTIVITY RECOMMENDATIONS: SELF CARE INSTRUCTIONS AFTER TOTAL KNEE REPLACEMENT A. You may need to continue a physical therapy program after discharge from the hospital. There are several options available to you. Your doctor will assist you in selecting the best one for you. 1. An out-patient facility 2 to 3 times a week for therapy or home therapy. 2. Continue working on all exercises taught to you in the hospital. Your goals should be to increase bending of your knee to 90 degrees and beyond and to fully straighten your knee. B. You may progress at your own pace from walking with a walker or crutches to a cane; then to no assistive devices. C. Make walking a part of your daily routine. Be up as much as comfortable with rest periods throughout the day. Rest with leg elevation is very important. Use the ice wrap frequently for the first 3-4 weeks. D. There are no restrictions on activities. You may ride in a car, shop, participate in flight test shop mechanic and all social activities. E. Wear the long elastic stockings (DOLLY hose) 20 hours a day for 2 weeks after surgery. They can be removed several times a day for laundering and for a bath. F. You may shower, no tub baths until cleared by your doctor. SPECIAL CARE INSTRUCTIONS: VERY IMPORTANT TO READ AND REVIEW A. There are a few signs you need to watch for after you are home. Call [facility] if you notice any of the followin. Increased severe knee pain. Some pain is expected especially when you exercise. 2. Increased swelling in your leg or knee; pain or swelling of the calf muscle in either lower leg. 3. Any fluid drainage from the incision. 4. Shortness of breath or chest pain. B. Please call [facility] at if you have any concerns or questions about your operation or recovery. The doctor or his nurse will return your call promptly. C. You must take antibiotics before dental work, bladder, bowel or other surgery. Your doctor will provide you with a permanent care to carry describing this precaution. IMPORTANT: * REMEMBER TO TAKE ASPIRIN, 81 MG, TWICE DAILY FOR 4 WEEKS UNLESS OTHERWISE DIRECTED. THIS IS YOUR BLOOD THINNER. * HIGH RISK PATIENTS MAY BE PRESCRIBED A STRONGER BLOOD THINNER. THIS WILL BE PROVIDED AT DISCHARGE. * CALL IF INCREASED PAIN, REDNESS, DRAINAGE OR FEVER GREATER THAT 101. * WEAR DOLLY HOSE 20 HOURS PER DAY FOR 2 WEEKS. * DERMABOND Prineo- This is a mesh tape dressing that is covered with glue. It should remain in place until the incision is properly healed, usually 10-14 days. This dressing is designed to naturally slough off. You may trim the excess mesh tape as it peels off. Incision may be briefly wet in a shower. Dry immediately by blotting with a clean, dry towel. Do not bath or swim until instructed by your doctor. Do not scratch, rub, or pick at the dressing. Do not apply any topical ointments or lotions until dressing is completely removed and/or instructed by your doctor. There may be a small piece of suture material at one end of your incision. Do not pull or trim this. If it is bothersome or catching on clothing, you may cover it with a band-aid. IF INCISION IS LEAKING THROUGH DRESSING, CALL THE OFFICE . FOLLOW UP VISIT: If appointment is not already scheduled: Please call [facility] to make a follow-up appointment for 2 weeks after your surgery at . Pending Studies at Discharge: No Stand-Alone Forms: [facility], Smoking Cessation Medications and DC Order Prescriptions: New celecoxib [Celebrex] 200 mg Capsule 200 mg PO BID Qty: 60 RF: 0 aspirin 81 mg Tablet,Delayed Release (Dr/Ec) 81 mg PO BID 30 Days Qty: 60 RF: 0 acetaminophen 500 mg Tablet 1,000 mg PO Q8 21 Days Qty: 126 RF: 0 oxycodone 5 mg Tablet 5 - 10 mg PO Q6H PRN (Reason: pain) Qty: 30 RF: 0 docusate sodium 100 mg Capsule 100 mg PO BID 10 Days Qty: 20 RF: 0 cefadroxil 500 mg capsule 500 mg PO BID 7 Days Qty: 14 RF: 0 Continued atorvastatin 10 mg Tablet 10 mg PO HS RF: 0 lisinopril 20 mg Tablet 30 mg PO QAM RF: 0 phenazopyridine [Azo] 95 mg Tablet 95 mg PO QAM RF: 0 multivitamin Capsule 1 cap PO DAILY RF: 0 cholecalciferol (vitamin D3) [Vitamin D3] 25 mcg (1,000 unit) Capsule 25 mcg PO QAM RF: 0 Calcium 600 + D(3) 600 mg calcium- 200 unit Capsule 2 cap PO QPM RF: 0 levothyroxine 88 mcg Capsule 88 mcg PO USEASDIRECTD RF: 0 Discontinued aspirin 81 mg Tablet 81 mg PO QAM RF: 0 lysine [L-Lysine] 500 mg Tablet 500 mg PO QAM RF: 0 coenzyme Q10 [Co Q-10] 100 mg Capsule 100 mg PO QPM RF: 0 Discharge Orders: Discharge Order (Routine); Ordered 07/04/20 Ordered By: Manish Layne Admission Data Admit Date/Time: 07/03/20 15:13 Attending Provider: Jair Demacro Admit Provider: Jair Demarco Primary Care Provider: Kim Solo
[2020-07-04] MEDS ORDERED: CeleBREX 200 MG CAP PO SCH (21:00)
[2020-07-07] MEDS ORDERED: LEVOTHYROXINE SODIUM 88 MCG TABLET PO SCH (06:30)
== END 2020-07-04 14:16 | disposition home health service (06) ==
LOC: ASU 10:11 → 3E 10:11

== ENCOUNTER 2021-12-24 06:57 | Observation (INO) ==
--- NOTE | 2021-11-18 16:22 | PAT Medication Instructions ---
Medication Instructions Date of Service November 18, 2021 Home Medications atorvastatin 10 mg tablet 10 mg PO HS calcium carbonate 600 mg-vitamin D3 5 mcg (200 unit) capsule (Calcium 600 + D(3)) 2 cap PO QDL cholecalciferol (vitamin D3) 25 mcg (1,000 unit) capsule (Vitamin D3) 25 mcg PO QDL levothyroxine 88 mcg capsule 88 mcg PO USEASDIRECTD lisinopril 20 mg tablet 30 mg PO QAM multivitamin 1 cap PO QDL phenazopyridine 95 mg tablet (Azo Urinary Pain Relief) 95 mg PO QAM DO NOT take the morning of surgery calcium carbonate 600 mg-vitamin D3 5 mcg (200 unit) capsule (Calcium 600 + D(3)) 2 cap PO QDL cholecalciferol (vitamin D3) 25 mcg (1,000 unit) capsule (Vitamin D3) 25 mcg PO QDL lisinopril 20 mg tablet 30 mg PO QAM multivitamin 1 cap PO QDL phenazopyridine 95 mg tablet (Azo Urinary Pain Relief) 95 mg PO QAM Take morning of surgery With a small sip of water, OTHERWISE NOTHING TO EAT OR DRINK AFTER MIDNIGHT: levothyroxine 88 mcg capsule 88 mcg PO USEASDIRECTD Take evening before surgery atorvastatin 10 mg tablet 10 mg PO HS Other Notes If you have any questions please call us at [phone] or [phone] or [phone] or [phone]
--- NOTE | 2021-11-24 14:12 | Anesthesiology Consultation ---
Date of Service November 24, 2021 Assessment & Plan (1) Encounter for pre-operative examination: - COVID screening: Per assessment on 11/24/2021: Travel screen negative, no known COVID-19 positive contacts or current COVID-19 related symptoms in past 2 weeks. Pt vaccinated. Surgeon arranging preop COVID testing, scheduled 12/22/2021. Awaiting results. Chart Review Chart Review: Acceptable Risk for Surgery and Patient seen in Pre Admission Testing Teaching & Discussion Pre-Anesthesia Teaching/Discussion Notes: Instructed NPO after midnight before surgery, except medications with 15 cc of water. Medication instructions provided according to the PAT guidelines. History Surgery Operation Date: 12/24/21 07:55 Proposed Procedures p Right Total Knee Arthroplasty - Jair Demarco DO Height/Weight Height: 5 ft 8 in Weight: 82.2 kg Allergies Allergy/AdvReac Type Severity Reaction Status Date / Time No Known Allergies Allergy Verified 11/13/21 13:34 Medications Home Medications Medication Instructions Recorded Confirmed Last Taken atorvastatin 10 mg tablet 10 mg PO HS 06/04/20 11/13/21 07/02/20 21:00 calcium carbonate 600 mg-vitamin 2 cap PO QDL 06/04/20 11/13/21 07/02/20 21:00 D3 5 mcg (200 unit) capsule (Calcium 600 + D(3)) cholecalciferol (vitamin D3) 25 25 mcg PO QDL 06/04/20 11/13/21 07/02/20 21:00 mcg (1,000 unit) capsule (Vitamin D3) levothyroxine 88 mcg capsule 88 mcg PO USEASDIRECTD 06/04/20 11/13/21 07/03/20 06:00 lisinopril 20 mg tablet 30 mg PO QAM 06/04/20 11/13/21 07/02/20 07:00 multivitamin 1 cap PO QDL 06/04/20 11/13/21 07/02/20 13:00 phenazopyridine 95 mg tablet (Azo 95 mg PO QAM 06/04/20 11/13/21 Unknown Urinary Pain Relief) Past Medical History Medical History History of COVID-19 04/09/2020 - positive covid tested at [facility], loss of taste and smell. no current problems Hyperlipidemia Hypertension controlled, stable per pt Hypothyroidism Patient denies h/o stroke, seizures, heart attack, heart failure, DM, blood clots or blood transfusions. Exercise / Class Metabolic Activity II 4-5 Yardwork/Stairs/Walk up hill (denies CP or SOB with 1 FOS) Past Family History Family History Other No family history of adverse response to anesthesia Past Surgical History Surgical History History of arthroscopy of right knee History of left knee replacement 07/03/20: SAB at L3-L4 + PNB. No issues per anesthesia progress note. Hx of cataract surgery right and left Hx of colonoscopy Hx of tonsillectomy PONV (postoperative nausea and vomiting) Past Anesthesia History No Hx of Anesthesia Complications and No Family Hx of Anesthesia Complications History of PONV No Hx of Motion Sickness and History of PONV (denies needing scop patch) Social History Smoking Status: Never smoker Do You Dip or Chew Tobacco: No Hx Alcohol Use: No Hx Substance Use: No substance use type: does not use Review of Systems Snoring, denies witnessed apneas. Chronic non-productive, cough attributed to lisinopril. Patient denies chest pain, shortness of breath, dyspnea on exertion, reflux, fever, chills, wheezing, or palpitations. Physical Exam Vital Signs Vitals BP 137/76 P 64 TEMP 98.4 SP02 97% on RA RESP 17 Physical Full cervical extension range of motion without pain TMD 3.5 finger breadths Mallampati Score 3 Dentition: intact, permanent upper left side; denies chipped or loose teeth, caps/crowns, implants Lungs: normal respiratory effort. Clear throughout to auscultation, no adventitious breath sounds Cardiac: regular rate and rhythm, no murmurs noted Carotid arteries: negative bruit bilat Lab Results Anesthesia Preop Results Results Anesthesia Widget: WBC 6.64 K/ul (4.8-10.8) 11/24/21 Hgb 12.4 g/dl (12.0-16.0) 11/24/21 Hct 38.0 % (34.1-44.9) 11/24/21 Plt 162 K/uL (130-400) 11/24/21 Na 142 mmol/L (136-145) 11/24/21 K 4.1 mmol/L (3.5-5.1) 11/24/21 Cl 107 mmol/L (98-107) 11/24/21 CO2 29 mmol/L (21-32) 11/24/21 BUN 18 mg/dl (6-23) 11/24/21 Creat 0.82 mg/dl (0.6-1.2) 11/24/21 Glucose Level 87 mg/dl (70-99(Fasting)) 11/24/21 PT 11.2 Seconds (9.0-12.0) 11/24/21 PTT 25.2 Seconds (21.0-31.0) 11/24/21 INR 1.1 (0.9-1.1) 11/24/21 HA1c 6.0 % (4.5-5.6) H 11/24/21 Urine Color Yellow 11/24/21 Urine Appearance Clear (Clear) 11/24/21 Urine pH 5.5 (4.5-7.5) 11/24/21 Urine Specific [place] 1.020 (1.000-1.030) 11/24/21 Urine Protein Negative (Negative) 11/24/21 Urine Glucose (UA) Negative (Negative) 11/24/21 Urine Ketones Negative (Negative) 11/24/21 Urine Blood Negative (Negative) 11/24/21 Urine Nitrite Negative (Negative) 11/24/21 Urine Bilirubin Negative (Negative) 11/24/21 Urine Urobilinogen Negative (Negative) 11/24/21 Urine Leukocyte Esterase Negative (Negative) 11/24/21 Blood Type O Positive 11/24/21 Antibody Screen NEGATIVE 11/24/21 Testing Electrocardiogram Date: 11/24/21 NSR, rate 65 bpm Chest X-Ray Date: 11/24/21 No lines and tubes are seen. The aorta is tortuous. The remainder of the cardiomediastinal silhouette is unremarkable. The lungs are clear. No evidence of pleural effusion or pneumothorax. IMPRESSION: No acute chest disease.
--- NOTE | 2021-11-25 08:27 | History & Physical Report ---
Date of Service November 25, 2021 date of surgery: 12/24/21 Procedure: Right Total Knee Arthroplasty Surgeon: Jair Demarco Assessment & Plan (1) Arthritis of right knee: Plan: Risks and benefits of procedure discussed in detail today, patient would like to proceed with a Right total knee replacement at [facility] as scheduled. will obtain medical clearance prior to surgery as well as obtain PATs at [facility]. Will place on ASA 81mg po bid x 1 month post op, f/u 2 weeks post op for routine post-operative care and x-ray, sooner if having any problems. will make arrangements for HHPT at the time of discharge. At this point in time, has failed conservative measures and would like to proceed with surgical intervention. The risks and benefits have been discussed including, but not limited to, risk of infection, nerve injury, stiffness, loss of motion, failure to improve, etc. Reasonable outcomes and options of treatment were discussed. An explanation of appropriate alternatives to the procedure that may be advantageous were discussed and their risks and benefits, as well as the risks and benefits of not proceeding with treatment. I offered to answer any additional inquiries concerning the treatment involved. All the patient's questions were answered. The patient is agreeable, understanding of the treatment plan and alternatives, and wishes to proceed with the treatment plan. History of Present Illness Chief Complaint: Right knee pain Primary Care Provider: DO Louie Appiahan is a 76 year old female who complains of right knee pain, presents for pre-op evaluation prior to a right total knee replacement by Dr Demarco at [facility]. she complains of pain, decreased range of motion, instability and stiffness in her right knee. Currently the patient states that the symptoms are moderate- severe. The pain is described as aching, sharp and throbbing. Her symptoms are aggravated by ascending stairs, daily activities, first steps while awake walking. Prior NSAIDs include IBU and Aleve. she has been treated with previous cortisone and visco injections in the past without much relief. she also had prior right knee scope with partial meniscectomy and chondroplasty in 2017. Allergies Allergy/AdvReac Type Severity Reaction Status Date / Time No Known Allergies Allergy Verified 11/13/21 13:34 Home Medications Medication Instructions Recorded Confirmed Type atorvastatin 10 mg tablet 10 mg PO HS 06/04/20 11/13/21 History calcium carbonate 600 mg-vitamin 2 cap PO QDL 06/04/20 11/13/21 History D3 5 mcg (200 unit) capsule (Calcium 600 + D(3)) cholecalciferol (vitamin D3) 25 25 mcg PO QDL 06/04/20 11/13/21 History mcg (1,000 unit) capsule (Vitamin D3) levothyroxine 88 mcg capsule 88 mcg PO USEASDIRECTD 06/04/20 11/13/21 History lisinopril 20 mg tablet 30 mg PO QAM 06/04/20 11/13/21 History multivitamin 1 cap PO QDL 06/04/20 11/13/21 History phenazopyridine 95 mg tablet (Azo 95 mg PO QAM 06/04/20 11/13/21 History Urinary Pain Relief) Past Med/Surg History Medical History History of COVID-19 04/09/2020 - positive covid tested at [facility], loss of taste and smell. no current problems Hyperlipidemia Hypertension controlled, stable per pt Hypothyroidism Surgical History History of arthroscopy of right knee History of left knee replacement 07/03/20: SAB at L3-L4 + PNB. No issues per anesthesia progress note. Hx of cataract surgery right and left Hx of colonoscopy Hx of tonsillectomy PONV (postoperative nausea and vomiting) Family History Other No family history of adverse response to anesthesia Social History Smoking Status: Never smoker Second Hand Exposure: No; Hx Alcohol Use: No Hx Substance Use: No Preferred Language: Canadian Communication Ability: Effective Learning And Development Administrator Required: No Beliefs That Will Affect Care: None marital status: Current Living Situation: Spouse Feels Safe at Home: Yes Assistive Devices: Glasses Review of Systems Review of Systems: All systems reviewed & are unremarkable except as noted in HPI & below Constitutional: no fever, no chills and no sweats Respiratory: no cough and no dyspnea Cardiovascular: no chest pain, no dyspnea and no orthopnea Gastrointestinal: no abdominal pain, no nausea and no vomiting Musculoskeletal: as per Subjective / HPI Physical Exam Physical Exam: HT: 5ft 8in WT: 82.2kg Constitutional: WD/WN, vitals as above no acute distress Respiratory: normal respiratory effort, lungs clear to auscultation no respiratory distress, no labored breathing and does not use accessory muscles Cardiovascular: RRR, no murmur, no edema Gastrointestinal (Abdomen): normal bowel sounds, soft, nontender, no hepatosplenomegaly Musculoskeletal: Knee: + knee abnormal to inspection (RIGHT KNEE), + effusion (+1 effusion), + surgical incision (well healed portals), + limited ROM of knee (ROM 0/3/110), + knee ROM with crepitation, + joint line tenderness (medial joint line) and + Ricci's sign positive; no deformity, no skin erythema, no ecchymosis, no valgus laxity, no varus laxity, anterior drawer test negative, Lorenza's sign negative and pivot shift test negative Results & Data Results & Data ([facility]) Diagnostic Findings Right Knee X-ray: Right knee series showing advanced degenerative changes to the right knee, narrowing of the medial compartment and patello-femoral joint with patellar spurring noted, findings showing joint space narrowing of the medial compartment and patello-femoral joint, osteophyte formation and subchondral sclerosis noted. overall varus alignment. no acute bony pathology noted.
[~2021-12-24 06:57] MED LIST changes: -BUPIVACAINE 0.25% 30 ML VIAL ONE; -EPINEPHrine INJ 1 MG/ML AMP ONE; +ROPIVACAINE 0.5% 5 MG/ML 30 ML VIAL ONE; +ROPIVACAINE 0.5% HCL/PF 150 MG, BUPIVACAINE 0.75% MPF 20 ML, EPINEPHrine 30MG/30ML (OR ... INFIL SCH; -ROPIVACAINE 0.5% HCL/PF 150 MG, BUPIVACAINE 0.75% MPF 20 ML, EPINEPHrine 30MG/30ML (OR ... INSTIL SCH; -Scopolamine 1 MG TDSY TD SCH; +TRANEXAMIC ACID 1,000 MG **IV Intra-op IV SCH; +TRANEXAMIC ACID 1,000 MG **IV Pre-op IV SCH; -ceFAZolin 1000MG 1,000 MG/7.5 ML SYR IV SCH; +ceFAZolin 2000MG 2,000 MG/15 ML SYR IV SCH
[2021-12-24] MEDS ORDERED: PROPOFOL IV EMULSION 10 MG/ML 20 ML VIAL IV ONE ×3 (08:10)
[2021-12-24] MEDS ORDERED: MIDAZOLAM HCL 1 MG/ML 2ML VIAL ONE (08:10)
--- NOTE | 2021-12-24 08:27 | History & Physical Bridge Note ---
Date of Service December 24, 2021 History & Physical Bridge Note I have examined the patient, reviewed the History & Physical and in the interval since the performance of the History & Physical I have noted the following changes of clinical significance: no changes noted
[2021-12-24] MEDS ORDERED: ATROPINE SULFATE 0.1 MG/ML 10ML SYR IV PRN (08:38)
[2021-12-24] MEDS ORDERED: ePHEDrine sulfate 50 MG/ML AMP IV PRN (08:38)
[2021-12-24] MEDS ORDERED: fentaNYL citrate 100 MCG/2 ML VIAL IV PRN (08:38)
[2021-12-24] MEDS ORDERED: ONDANSETRON INJ 2 MG/ML 2 ML VIAL IV PRN ×2 (08:38→13:49)
[2021-12-24] MEDS ORDERED: ORTHO JOINT ANESTHETIC ONE (09:04)
--- NOTE | 2021-12-24 10:49 | Operative Report ---
Post Operative Report Pre & Post Diagnosis Operation Date: 12/24/21 09:20 Pre-Op Diagnosis: Osteoarthritis Right Knee Post-Op Diagnosis: Osteoarthritis Right Knee I identified the patient and participated in the time-out.: Yes Procedure Operation Date: 12/24/21 09:20 Actual Procedures p Right Total Knee Arthroplasty(Right) utilizing [employer] persona size femur 8 narrow tibia EE polyten medial constrained patella 31 oval- Jair Demarco DO Surgeon Jair Demarco DO Manager Inventory Manish ERNANDEZ Estimated Blood Loss 5 Findings Consistent with Post-Op Diagnosis Patient presents with severe end-stage tricompartmental degenerative joint disease varus alignment subchondral sclerosis marginal osteophytes moderate to large effusion Specimens Bone and cartilage Drains Medium bore Hemovac Anesthesia Type MAC Spinal Regional Complications none Disposition Accompanied Patient To Recovery: No Disposition: Recovery Room Indications Patient presents with severe end-stage DJD having failed attempted conservative management occluding physical therapy anti-inflammatories relative rest activity modification corticosteroid injection viscosupplementation the above intraoperative findings were noted Description of Procedure After proper prepping and draping of the Right lower extremity anterior midline incision was made over the region of the extensor extensor mechanism after meticulous hemostasis was obtained and maintained in subcutaneous tissues a medial parapatellar incision was made The patella was subluxed lateralward the medial lateral gutter were cleaned from any hypertrophic synovitis and scar tissue of the distal femoral block was placed and the distal femoral osteotomy cut was made subsequently the chamfers anterior and posterior osteotomy cuts were made utilizing the 4-in-1 block the tibia was subsequently subluxed anteriorward medial and ateral meniscal remnants were excised in their entirety remnants of the anterior and posterior cruciate ligaments were excised in their entirety excellent exposure of the proximal tibia was obtained the tibial osteotomy guide was placed on the proximal tibial osteotomy cut was made once again the knee was irrigated with copious amounts of sterile saline solution the patella was subsequently everted lateralward thickened scar tissue around the patella was removed the patella was subsequently cut utilizing a freehand technique and was drilled prepared for final preparation and placement of patella socially flexion-extension gaps were checked and the equal and symmetric trials were placed to the appropriate femoral and tibial trials with poly-spacer being placed for equal flexion and extension gaps and full range of motion including extension to 0 and flexion to 140 the trial components after having been taken to recovery range of motion was subsequently removed meticulous hemostasis was obtained and maintained subsequently a knee block injection of joint cocktail including ropivacaine 0.5% 150 mg. Bupivacaine 0.5% epinephrine 1-200,030 mL's toradol 30 mg dexamethasone 4 mg ketamine 10 mg clonidine 100 micrograms normal saline solution 30 mg was infiltrated into the soft tissues of the posterior knee medial lateral gutters and periosteal synovium special attention was paid to protect neurovascular structures at all times subsequently trial components having been removed the knee was irrigated with sterile saline solution. debris was removed the proximal tibia was subsequently prepared and was made ready for the placement of the tibial component tibial component was also cemented and tamped into position the femoral component was subsequently placed and cemented in the position the patellar component was subsequently cemented in position because hemostasis once again obtained and maintained wound having been thoroughly irrigated with debridement and debridement lavage was performed as well as a medial parapatellar incision closed with #1 Vicryl in interrupted fashion subcutaneous was closed with #2 Vicryl skin was closed with skin clips. PA-C was necessary for prepping and drapping as well as wound closure of deep fascia Sub cutaneous tissue and skin and was necessary for the case. A sterile compressive dressing was placed patient was taken to recovery in stable condition of report dictated by Dav I attest to the content of the Intraoperative Record and any orders documented therein. Any exceptions are noted below.Due to the complex nature of the procedure, the entire surgery was performed with the operational assistance of Manish ERNANDEZ. The medical office receptionist assistant, under direct supervision, was involved in the actual performance of all aspects of the surgical procedure including hemostasis, tissue retraction and incision, instrument management, patient positioning, and wound closure. I attest to the content of the Intraoperative Record and any orders documented therein. Any exceptions are noted below.
--- NOTE | 2021-12-24 12:16 | XRay Report ---
XR knee RT 1 or 2V routine HISTORY: 76 years-old Female Surgical Post Op right knee total joint arthroplasty COMPARISON: None TECHNIQUE: 2 views of the right knee FINDINGS: Total joint arthroplasty with patellar resurfacing. Expected postoperative soft tissue swelling with deep tissue air. Surgical drainage catheter in place. No acute fracture, dislocation or unexpected op aque foreign body. IMPRESSION: Total joint arthroplasty with expected postoperative changes. ACT 112: Negative or not required by law. The above report was generated using voice recognition software. It may contain grammatical, syntax o r spelling errors. Electronically signed by: Delfin Tavares M.D. 12/24/2021 12:14 PM
--- NOTE | 2021-12-24 13:16 | Anesthesiology Progress Note ---
Date of Service December 24, 2021 Anesthesia Post Procedure Vital Signs Vital Signs: Temp Pulse Pulse Resp BP Pulse Ox O2 Del Method 12/24/21 12:50 97.5 F L 51 L 14 122/62 96 Room Air 12/24/21 12:25 55 L 13 110/63 95 Room Air 12/24/21 12:05 59 L 16 117/64 97 Room Air 12/24/21 12:35 49 L 19 134/70 95 Room Air 12/24/21 12:15 54 L 14 126/63 96 Room Air 12/24/21 11:55 55 L 12 104/63 97 Room Air 12/24/21 11:45 53 L 14 112/70 98 Room Air 12/24/21 11:35 56 L 15 115/58 L 97 Room Air 12/24/21 11:27 97.3 F L 58 L 15 116/60 98 Room Air 12/24/21 08:16 98.2 F 61 18 152/82 H 100 Room Air Transfer of Care Handoff Completed per policy Notes Mental Status: alert / awake / arousable and participated in evaluation Patient Amnestic to Procedure: Yes Nausea / Vomiting: adequately controlled Pain: adequately controlled Airway Patency, RR, SpO2: stable & adequate BP & HR: stable & adequate Hydration State: stable & adequate Neuraxial Anesthesia: was administered and sensory block is resolving Anesthetic Complications: no major complications apparent and Pt Satisfied with anesthetic care
[2021-12-24] MEDS ORDERED: diphenhydrAMINE Capsule 25 MG CAP PO PRN (13:49)
[2021-12-24] MEDS ORDERED: NALOXONE HCL 0.4 MG/1 ML VIAL/CARP IV PRN (13:49)
[2021-12-24] MEDS ORDERED: METOCLOPRAMIDE HCL INJ 5 MG/ML 2 ML VIAL IV PRN (13:49)
[2021-12-24] MEDS ORDERED: bisacodyL 10 MG SUPP PR PRN (13:49)
[2021-12-24] MEDS ORDERED: MAGNESIUM HYDROXIDE SUSP 30 ML UDC PO PRN (13:49)
[2021-12-24] MEDS ORDERED: HYDROmorphone INJ 1 MG/ML SYRINGE IV PRN (13:49)
[2021-12-24] MEDS: SODIUM CHLORIDE 0.9% 1000ML 1,000 ML IV SCH (14:02)
[2021-12-24] MEDS: CHOLECALCIFEROL 1,000 UNITS 25 MCG TAB PO SCH (15:08)
[2021-12-24] MEDS: ACETAMINOPHEN 500 MG TAB PO SCH ×2 (15:08→21:12)
[2021-12-24] MEDS: KETOROLAC TROMETHAMINE 15 MG/ML VIAL IV SCH ×2 (15:09→21:08)
[2021-12-24] MEDS: ceFAZolin 2000MG 2,000 MG/15 ML SYR IV SCH (16:17)
[2021-12-24] MEDS: oxyCODONE HCL IR 5 MG TAB (IMMEDIATE RELEASE) PO PRN (18:29)
[2021-12-24] MEDS ORDERED: ATORVASTATIN 10 MG TAB PO SCH (21:00)
[2021-12-24] MEDS ORDERED: SENNA 8.6 MG TAB PO SCH (21:00)
[2021-12-24] MEDS: ASPIRIN 81 MG ECTAB PO SCH (21:08)
[2021-12-24] MEDS: DOCUSATE SODIUM 100 MG CAP PO SCH (21:08)
[2021-12-25] MEDS: ceFAZolin 2000MG 2,000 MG/15 ML SYR IV SCH (00:21)
[2021-12-25] MEDS: SODIUM CHLORIDE 0.9% 1000ML 1,000 ML IV SCH (00:45)
[2021-12-25] MEDS: KETOROLAC TROMETHAMINE 15 MG/ML VIAL IV SCH ×2 (03:10→09:39)
[2021-12-25] MEDS: oxyCODONE HCL IR 5 MG TAB (IMMEDIATE RELEASE) PO PRN (03:11)
[2021-12-25] MEDS: ACETAMINOPHEN 500 MG TAB PO SCH (06:09)
[2021-12-25] MEDS ORDERED: LEVOTHYROXINE SODIUM 88 MCG TABLET PO SCH (06:30)
[2021-12-25 06:53] LABS: Hematocrit (blood only) 33.2 % (34.1-44.9); Hemoglobin 10.9 g/dl (12.0-16.0); Mean Corpuscular Hemoglobin 29.9 pg (25.0-34.0); Mean Corpuscular Hgb Conc 32.8 g/dL (32.0-36.0); Mean Platelet Volume 11.8 fL (9.4-12.3); Platelet Count 153 K/uL (130-400); RDW Coefficient of Variation 12.8 % (11.5-14.5); Red Blood Count 3.65 M/uL (3.93-5.22); White Blood Count 12.85 K/ul (4.8-10.8)
[2021-12-25 08:05] LABS: BUN Creatinine Ratio 26.3 (10-20); Calcium 9.9 mg/dl (8.5-10.1); Creatinine Clr Calc Pharmacy 68.3 ml/min; Est GFR (African American) 83.6 ml/min; Est GFR (Non-African American) 72.1 ml/min; Potassium 4.4 mmol/L (3.5-5.1)
--- NOTE | 2021-12-25 08:23 | Orthopedic Progress Note ---
Date of Service December 25, 2021 Assessment & Plan (1) Arthritis of right knee: Plan: Postop day 1 status post right total knee arthroplasty. PT/OT protocols. Weightbearing as tolerated. DVT prophylaxis-aspirin p.o. twice daily, SCDs, DOLLY garza. Pain management as written. Discharge planning-patient is planning for home health services upon DC. Plan for discharge home today. Admission and Anticipated Discharge Date Admission Date: December 24, 2021 Subjective Postop day 1 Patient sitting up at bedside awake and alert. Feeling well overall. She states that she has some mild pain in the posterior aspect of her knee. She has been ambulating in her room independently. No complaints at this time. Denies shortness of breath, chest pain, lightheadedness. He is hoping to go home today. Physical Exam Physical Exam: Dressings are clean, dry, and intact. Calves are soft nontender. Neurovascular is intact. Toes are mobile. She had 100 mL drainage from her Hemovac from the previous shift. Results & Data ([facility]) Vital Signs (Past 12 Hours) Vital Signs Temp Pulse Resp BP Pulse Ox O2 Del Method 12/25/21 03:17 36.7 C 60 18 143/71 H 97 Room Air 12/25/21 01:02 36.6 C 65 18 149/78 H 96 Room Air Laboratory Results Laboratory Results WBC 12.85 K/ul (4.8-10.8) H 12/25/21 06:05 RBC 3.65 M/uL (3.93-5.22) L 12/25/21 06:05 Hgb 10.9 g/dl (12.0-16.0) L 12/25/21 06:05 Hct 33.2 % (34.1-44.9) L 12/25/21 06:05 MCV 91.0 fL (80.0-100.0) 12/25/21 06:05 MCH 29.9 pg (25.0-34.0) 12/25/21 06:05 MCHC 32.8 g/dL (32.0-36.0) 12/25/21 06:05 RDW Std Deviation 42.0 fL (36.4-46.3) 12/25/21 06:05 RDW Coeff of Shailesh 12.8 % (11.5-14.5) 12/25/21 06:05 Plt Count 153 K/uL (130-400) 12/25/21 06:05 MPV 11.8 fL (9.4-12.3) 12/25/21 06:05 Sodium 140 mmol/L (136-145) 12/25/21 06:05 Potassium 4.4 mmol/L (3.5-5.1) 12/25/21 06:05 Chloride 109 mmol/L (98-107) H 12/25/21 06:05 Carbon Dioxide 23 mmol/L (21-32) 12/25/21 06:05 Anion Gap 8 (3-11) 12/25/21 06:05 BUN 21 mg/dl (6-23) 12/25/21 06:05 Creatinine 0.80 mg/dl (0.6-1.2) 12/25/21 06:05 Est Cr Clr Drug Dosing 68.3 ml/min 12/25/21 06:05 Est GFR ( Amer) 83.6 ml/min 12/25/21 06:05 Est GFR (Non-Af Amer) 72.1 ml/min 12/25/21 06:05 BUN/Creatinine Ratio 26.3 (10-20) H 12/25/21 06:05 Glucose 119 mg/dl (70-99(Fasting)) H 12/25/21 06:05 Calcium 9.9 mg/dl (8.5-10.1) 12/25/21 06:05 SARS-CoV-2, RNA, NAAT NEGATIVE (NEGATIVE) 12/24/21 07:25 Impressions Knee X-Ray 12/24/21 11:00 XR knee RT 1 or 2V routine HISTORY: 76 years-old Female Surgical Post Op right knee total joint arthroplasty COMPARISON: None TECHNIQUE: 2 views of the right knee FINDINGS: Total joint arthroplasty with patellar resurfacing. Expected postoperative soft tissue swelling with deep tissue air. Surgical drainage catheter in place. No acute fracture, dislocation or unexpected opaque foreign body. IMPRESSION: Total joint arthroplasty with expected postoperative changes. ACT 112: Negative or not required by law. The above report was generated using voice recognition software. It may contain grammatical, syntax or spelling errors. Electronically signed by: Delfin Tavares M.D. 12/24/2021 12:14 PM
[2021-12-25] MEDS ORDERED: MULTIVITAMIN TAB PO SCH (09:00)
[2021-12-25] MEDS ORDERED: lisinopril 10 MG TAB PO SCH (09:00)
[2021-12-25] MEDS ORDERED: CeleBREX 200 MG CAP PO SCH (09:00)
[2021-12-25] MEDS ORDERED: PSYLLIUM or GUAR GUM FIBER POWDER PACKET PO SCH (09:00)
[2021-12-25] MEDS: ASPIRIN 81 MG ECTAB PO SCH (09:40)
[2021-12-25] MEDS: DOCUSATE SODIUM 100 MG CAP PO SCH (09:40)
[2021-12-25] MEDS ORDERED: CALCIUM 600MG + VIT D 400 IU TAB PO SCH (11:30)
[2021-12-25] MEDS: CHOLECALCIFEROL 1,000 UNITS 25 MCG TAB PO SCH (11:58)
== END 2021-12-25 13:18 | disposition home or self-care (01) ==
LOC: ASU 06:57 → 3E 06:57